=== PATIENT | female | born 1995 | race Caucasian/White ===

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

== ENCOUNTER 2017-01-18 18:05 | Emergency (ER) | payer BC ==
[2017-01-18 20:58] LABS: Hematocrit 36 % (35-47); Hemoglobin 12.2 g/dl (12.0-16.0); Mean Corpuscular HGB Conc 35 g/dl (31-36); Mean Corpuscular Hemoglobin 31 pg (27-31); Mean Corpuscular Volume 89 fL (80-97); Mean Platelet Volume 8 um3 (7.4-10.4); Red Blood Count 3.99 10^6/ul (4.0-5.4); Red Cell Distribution Width 12 % (10.5-15); White Blood Count 4.8 10^3/ul (3.5-10.8)
[2017-01-18 21:13] LABS: Albumin 4.2 g/dL (3.2-5.2); BUN/Creatinine Ratio 17.5 (8-20); Calcium 9.2 mg/dL (8.6-10.3); EGFR African American 156.6 (>60); EGFR Non-African American 121.7 (>60); Magnesium 2.4 mg/dL (1.9-2.7); Potassium 3.7 mmol/L (3.5-5.0); Total Bilirubin 0.3 mg/dL (0.2-1.0); Total Protein 7.2 g/dL (6.4-8.9)
[2017-01-18] MEDS ORDERED: NS 0.9% 1000 ML* 1,000 ML IV ONE (21:27)
[2017-01-18] MEDS ORDERED: Ketorolac INJ* 30 MG/ML 1 ML VIAL IV PUSH ONE (21:27)
[2017-01-18 21:54] LABS: Mono Internal Control QC Line Present
[2017-01-18 22:14] LABS: TSH (Thyroid Stimulating Horm) 1.07 mcIU/mL (0.34-5.60)
--- NOTE | 2017-01-18 22:50 | ED ---
HPI Febrile Illness - HPI Summary HPI Summary: Pt here w/ flu-like sx - upper resp congestion, mild cough, nausea and dizziness. Tried to go to [facility] but couldn't be seen today. Went to and was dx'd w/ virus however on her way out of the office, she lost her balance when she went from sitting to standing and so sent here. Cough is dry and intermittent - denies SOB, dyspnea. Admits to PND w/ ST. Fever. Denies neck pain/stiffness, rash, ab pain, urinary sx, and moving bowels well. Feels wiped out in general. No h/o cardiac issues. Dances at school. - History of Current Complaint Chief Complaint: EDGeneral Time Seen by Provider: 01/18/17 20:00 Hx Obtained From: Patient Pain Intensity: 0 - Allergy/Home Medications Allergies/Adverse Reactions: Allergies Allergy/AdvReac Type Severity Reaction Status Date / Time Shellfish Allergy Allergy Vomiting Verified 04/30/16 23:12 PMH/Surg Hx/FS Hx/Imm Hx Previously Healthy: Yes Endocrine/Hematology History: Denies: Hx Anticoagulant Therapy, Hx Blood Disorders, Hx Diabetes, Hx Thyroid Disease, Hx Anemia, Autoimmune Disease Cardiovascular History: Denies: Hx Congenital Heart Disease, Hx Deep Vein Thrombosis, Hx Hypertension , Hx Myocardial Infarction, Hx Syncope Respiratory History: Denies: Hx Asthma GI History: Denies: Hx Gastroesophageal Reflux Disease, Hx Gastrointestinal Bleed, Hx Ulcer History: Denies: Hx Renal Disease Psychiatric History: Reports: Hx Anxiety, Hx Depression Denies: Hx Eating Disorder, Hx of Violent Episodes Against Others - Immunization History Date of Tetanus Vaccine: utd Date of Influenza Vaccine: fall 2015 Infectious Disease History: No Infectious Disease History: Denies: Traveled Outside the [place] in Last 30 Days - Family History Known Family History: Negative: Cardiac Disease, Hypertension, Diabetes - Social History Occupation: Student Lives: Dormitory/Roommates Alcohol Use: None Hx Substance Use: No Substance Use Type: Reports: None Hx Tobacco Use: No Smoking Status (MU): Never Smoked Tobacco Review of Systems Positive: Fever, Fatigue. Negative: Chills Eyes: Negative Negative: Photophobia, Blurred Vision, Diplopia, Drainage, Erythema Positive: Sore Throat, Ear Ache, Nasal Discharge Cardiovascular: Negative Negative: Palpitations, Chest Pain Positive: Cough. Negative: Shortness Of Breath Positive: Nausea. Negative: Abdominal Pain, Vomiting, Diarrhea Negative: burning, dysuria, discharge, frequency, flank pain, hematuria, incontinence, pain, urgency Musculoskeletal: Negative Negative: Arthralgia, Myalgia, Decreased ROM, Edema Skin: Negative Negative: Rash Positive: Headache - low grade. Negative: Weakness, Paresthesia, Numbness, Syncope, Slurred Speech Psychological: Normal All Other Systems Reviewed And Are Negative: Yes Physical Exam Triage Information Reviewed: Yes Vital Signs On Initial Exam: Initial Vitals BP 111/69 01/18/17 18:12 Vital Signs Reviewed: Yes Appearance: Positive: Well-Appearing - appears mildly fatigued - otherwise good color, timely responses, No Pain Distress, Thin Skin: Positive: Warm, Dry Head/Face: Positive: Normal Head/Face Inspection - sinuses nttp Eyes: Positive: Normal, EOMI, JAYJAY, Conjunctiva Clear ENT: Positive: Normal ENT inspection, Hearing grossly normal, Pharynx normal, TMs normal. Negative: Nasal congestion, Nasal drainage, Tonsillar swelling, Tonsillar exudate Neck: Positive: Supple, Nontender, No Lymphadenopathy Respiratory/Lung Sounds: Positive: Clear to Auscultation, Breath Sounds Present. Negative: Rales, Rhonchi, Wheezes Cardiovascular: Positive: Normal, RRR, Pulses are Symmetrical in both Upper and Lower Extremities, S1, S2. Negative: Murmur, Rub, Leg Edema Left, Leg Edema Right Abdomen Description: Positive: Nontender, No Organomegaly, Soft. Negative: CVA Tenderness (R), CVA Tenderness (L) Bowel Sounds: Positive: Present Musculoskeletal: Positive: Normal, Strength/ROM Intact Neurological: Positive: Normal, Sensory/Motor Intact, Alert, Oriented to Person Place, Time, CN Intact II-III, Facial Symmetry, Speech Normal, Other - negative kernig and brudarianki Psychiatric: Positive: Normal - shy - Allen Coma Scale Coma Scale Total: 15 Diagnostics - Vital Signs Vital Signs Temp Pulse Resp BP Pulse Ox 01/18/17 21:46 80 104/72 01/18/17 18:17 100.3 F 81 16 111/69 99 01/18/17 18:13 80 98 01/18/17 18:12 111/69 - Laboratory Lab Results: Lab Results 01/18/17 01/18/17 01/18/17 Range/Units 20:44 20:49 20:49 WBC 4.8 (3.5-10.8) 10^3/ul RBC 3.99 L (4.0-5.4) 10^6/ul Hgb 12.2 (12.0-16.0) g/dl Hct 36 (35-47) % MCV 89 (80-97) fL MCH 31 (27-31) pg MCHC 35 (31-36) g/dl RDW 12 (10.5-15) % Plt Count 218 (150-450) 10^3/ul MPV 8 (7.4-10.4) um3 Neut % (Auto) 56.8 (38-83) % Lymph % (Auto) 34.3 (25-47) % Towner % (Auto) 5.2 (1-9) % Eos % (Auto) 3.1 (0-6) % Baso % (Auto) 0.6 (0-2) % Absolute Neuts (auto) 2.7 (1.5-7.7) 10^3/ul Absolute Lymphs (auto) 1.6 (1.0-4.8) 10^3/ul Absolute Monos (auto) 0.2 (0-0.8) 10^3/ul Absolute Eos (auto) 0.1 (0-0.6) 10^3/ul Absolute Basos (auto) 0 (0-0.2) 10^3/ul Absolute Nucleated RBC 0 10^3/ul Nucleated RBC % 0.1 Sodium 136 (133-145) mmol/L Potassium 3.7 (3.5-5.0) mmol/L Chloride 104 (101-111) mmol/L Carbon Dioxide 25 (22-32) mmol/L Anion Gap 7 (2-11) mmol/L BUN 11 (6-24) mg/dL Creatinine 0.63 (0.51-0.95) mg/dL Est GFR ( Amer) 156.6 (>60) Est GFR (Non-Af Amer) 121.7 (>60) BUN/Creatinine Ratio 17.5 (8-20) Glucose 88 (70-100) mg/dL Calcium 9.2 (8.6-10.3) mg/dL Magnesium 2.4 (1.9-2.7) mg/dL Total Bilirubin 0.30 (0.2-1.0) mg/dL AST 16 (13-39) U/L ALT 12 (7-52) U/L Alkaline Phosphatase 33 L (34-104) U/L Total Protein 7.2 (6.4-8.9) g/dL Albumin 4.2 (3.2-5.2) g/dL Globulin 3.0 (2-4) g/dL Albumin/Globulin Ratio 1.4 (1-3) TSH 1.07 (0.34-5.60) mcIU/mL Monoscreen Negative (Negative) Influenza A (Rapid) Negative (Negative) Influenza B (Rapid) Negative (Negative) Result Diagrams: 01/18/17 20:49 01/18/17 20:49 Lab Statement: Any lab studies that have been ordered have been reviewed, and results considered in the medical decision making process. Re-Evaluation - Re-Evaluation First Eval Change: Improved - fatigue and positional dizziness improved w/ IVF Course/Dx - Course Course Of Treatment: pt presents from [facility] w/ dx of URI (viral) w/ concern for becoming lightheaded with transition from sitting to standing. Evaluation here was neg for further emergenct concerns and pt's positional dizziness resovled w / IVF. She was tested for mono as her sx of ST and fatigue make her a candidate for this infection. She will rest and f/u w./ [facility] for final resuilts and release back to activity as appropriate. Reviewed danger s/sx of when to return to ED. Pt agrees w/ plan. - Diagnoses Provider Diagnoses: URI (upper respiratory infection) Discharge - Discharge Plan Condition: Stable Disposition: HOME Patient Education Materials: Mononucleosis (ED), Fever in Adults (ED), Upper Respiratory Infection (ED) Forms: *School Release Referrals: [facility] [Primary Care Provider] - Additional Instructions: The definitive cause of your symptoms was not identified today however you appear to have a viral infection with mild dehydration. This was most likely the cause of your dizziness earlier - your blood pressure was stable here tonight and you felt better after IV fluids and an anti-inflammatory medication. There is a possibility you could have mono. Additional labs were drawn here tonight. It is important that you rest for the next 48 hours and follow-up with [facility] for results and safe release back to classes, dance, etc. Call tomorrow to schedule an appointment. In the meantime, drink plenty of fluids. You may use acetaminophen alternating with ibuprofen for pain, fever You may try the following tactics for URI sx relief: Nasal wash (netti pot) & throat gargle 2 x day with 8 ounces of warm water + 1/ 4 teaspoon of salt Drink 60+ ounces of water daily Sleep 8+ hours per night Avoid Dairy and sugar Hot herbal/decaf tea with lemon & honey Chicken broth (preferably organic, free range chicken) Humidifier in house, but especially near bed at night Try a facial steam with or without eucalyptus essential oil Consider taking Vitamin D3 5,000iu and Vitamin C 1,000mg every day during illness *If symptoms worsen, return to ED
[2017-01-18 23:10] VITALS: BP 110/74
[2017-01-20 14:16] LABS: EBV Capsid Ag IgG Ab Negative (Negative); EBV Capsid Ag IgM Ab Negative (Negative)
== END 2017-01-18 23:12 | disposition home or self-care (01) ==
LOC: ED 18:05
DX: J39.8 Other specified diseases of upper respiratory tract (principal); J02.9 Acute pharyngitis, unspecified; R11.0 Nausea; R42 Dizziness and giddiness; R53.83 Other fatigue; H92.09 Otalgia, unspecified ear
CPT/HCPCS: 36415; 80053; 83735; 84443; 85025; 86308; 86664; 86665; 87502; 96374; 99284; J1885

== ENCOUNTER 2017-04-17 18:36 | Emergency (ER) | payer BC ==
--- NOTE | 2017-04-17 20:10 | ED ---
Influenza-Like Illness - History of Current Complaint Chief Complaint: EDFluSymptoms Time Seen by Provider: 04/17/17 19:22 - Allergy/Home Medications Allergies/Adverse Reactions: Allergies Allergy/AdvReac Type Severity Reaction Status Date / Time MS Shellfish Allergy Allergy Vomiting Verified 04/30/16 23:12 [Shellfish Allergy] PMH/Surg Hx/FS Hx/Imm Hx Endocrine/Hematology History: Denies: Hx Anticoagulant Therapy, Hx Blood Disorders, Hx Diabetes, Hx Thyroid Disease, Hx Anemia Cardiovascular History: Denies: Hx Congenital Heart Disease, Hx Congestive Heart Failure, Hx Deep Vein Thrombosis, Hx Hypertension, Hx Myocardial Infarction, Hx Syncope Respiratory History: Denies: Hx Asthma GI History: Denies: Hx Gastroesophageal Reflux Disease, Hx Gastrointestinal Bleed, Hx Ulcer History: Denies: Hx Renal Disease Psychiatric History: Reports: Hx Anxiety, Hx Depression Denies: Hx Eating Disorder, Hx of Violent Episodes Against Others - Immunization History Date of Tetanus Vaccine: utd Date of Influenza Vaccine: 12/2016 Immunizations Up to Date: Yes Infectious Disease History: No Infectious Disease History: Denies: Traveled Outside the [place] in Last 30 Days - Family History Known Family History: Negative: Cardiac Disease, Hypertension, Diabetes - Social History Alcohol Use: None Hx Substance Use: No Substance Use Type: Reports: None Hx Tobacco Use: No Smoking Status (MU): Never Smoked Tobacco Physical Exam Vital Signs On Initial Exam: Initial Vitals Temp Pulse Resp BP Pulse Ox 99.3 F 96 16 116/71 99 04/17/17 19:12 04/17/17 19:12 04/17/17 19:12 04/17/17 19:12 04/17/17 19:12 Diagnostics - Vital Signs Vital Signs Temp Pulse Resp BP Pulse Ox 04/17/17 19:12 99.3 F 96 16 116/71 99 - Laboratory Lab Statement: Any lab studies that have been ordered have been reviewed, and results considered in the medical decision making process. Discharge - Discharge Plan [facility] [facility] -
[2017-04-17] MEDS ORDERED: Ibuprofen TAB* 600 MG PO ONE (20:14)
[2017-04-17 21:32] VITALS: BP 127/68
--- NOTE | 2017-04-17 21:50 | ED ---
Influenza-Like Illness - HPI Summary HPI Summary: 21 female presents to ED with complaints of still feeling ill after being diagnosed with the flu 2 days ago. Patient states she is still coughing, experiencing palpitations, body aches and fatigue. Has had decreased appetite although has been trying to drink. Denies any other new symptoms. Has been taking nyquil and tylenol. Admits to intermittent nausea, denies vomiting, abdominal pain, and diarrhea. Denies neck pain or stiffness. No recent fever. No other complaints. No PMHx. No other medications. - History of Current Complaint Chief Complaint: EDFluSymptoms Time Seen by Provider: 04/17/17 19:22 Hx Obtained From: Patient Onset/Duration: Sudden Onset, Lasting Days, Still Present Severity: Moderate Associated Signs & Symptoms: Myalgia, Cough, Nasal Congestion - Allergy/Home Medications Allergies/Adverse Reactions: Allergies Allergy/AdvReac Type Severity Reaction Status Date / Time MS Shellfish Allergy Allergy Vomiting Verified 04/30/16 23:12 [Shellfish Allergy] PMH/Surg Hx/FS Hx/Imm Hx Endocrine/Hematology History: Denies: Hx Anticoagulant Therapy, Hx Blood Disorders, Hx Diabetes, Hx Thyroid Disease, Hx Anemia Cardiovascular History: Denies: Hx Congenital Heart Disease, Hx Congestive Heart Failure, Hx Deep Vein Thrombosis, Hx Hypertension, Hx Myocardial Infarction, Hx Syncope Respiratory History: Denies: Hx Asthma GI History: Denies: Hx Gastroesophageal Reflux Disease, Hx Gastrointestinal Bleed, Hx Ulcer History: Denies: Hx Renal Disease Psychiatric History: Reports: Hx Anxiety, Hx Depression Denies: Hx Eating Disorder, Hx of Violent Episodes Against Others - Surgical History Surgery Procedure, Year, and Place: n/a - Immunization History Date of Tetanus Vaccine: utd Date of Influenza Vaccine: 12/2016 Immunizations Up to Date: Yes Infectious Disease History: No Infectious Disease History: Denies: Traveled Outside the [place] in Last 30 Days - Family History Known Family History: Negative: Cardiac Disease, Hypertension, Diabetes - Social History Alcohol Use: None Hx Substance Use: No Substance Use Type: Reports: None Hx Tobacco Use: No Smoking Status (MU): Never Smoked Tobacco Review of Systems Positive: Chills, Fatigue Positive: Nasal Discharge Positive: Palpitations - sometimes associated with fever Positive: Cough Positive: Nausea Positive: Myalgia Positive: Headache All Other Systems Reviewed And Are Negative: Yes Physical Exam Triage Information Reviewed: Yes Vital Signs On Initial Exam: Initial Vitals Temp Pulse Resp BP Pulse Ox 99.3 F 96 16 116/71 99 04/17/17 19:12 04/17/17 19:12 04/17/17 19:12 04/17/17 19:12 04/17/17 19:12 Vital Signs Reviewed: Yes Appearance: Positive: Well-Appearing, No Pain Distress, Well-Nourished Skin: Positive: Warm, Skin Color Reflects Adequate Perfusion, Dry ENT: Positive: Hearing grossly normal, Pharyngeal erythema, Nasal congestion, TMs normal, Uvula midline Neck: Positive: Supple, Nontender, No Lymphadenopathy. Negative: Nuchal Rigidity Respiratory/Lung Sounds: Positive: Clear to Auscultation, Breath Sounds Present. Negative: Rales, Rhonchi, Wheezes Cardiovascular: Positive: Normal, RRR, Pulses are Symmetrical in both Upper and Lower Extremities. Negative: Murmur, Rub Abdomen Description: Positive: Nontender, Soft Bowel Sounds: Positive: Present Musculoskeletal: Positive: Normal, Strength/ROM Intact Neurological: Positive: Normal, Sensory/Motor Intact, Alert, Oriented to Person Place, Time Diagnostics - Vital Signs Vital Signs Temp Pulse Resp BP Pulse Ox 04/17/17 21:31 97.8 F 96 19 127/68 98 04/17/17 19:12 99.3 F 96 16 116/71 99 - Laboratory Lab Statement: Any lab studies that have been ordered have been reviewed, and results considered in the medical decision making process. Flu Symptom Course/Dx - Course Course Of Treatment: reassured patient that her symptoms are due to having influenza, which was tested positive on and that symptoms can last 1 week. due to symptoms being <48 hours no tamiflu initiated. no other concerns. normal PE and vital signs. follow up with health center. aware of worsening signs and symptoms to watch out for and to return if occur. understands and agrees. patient also probably due to dehydration and not eating/drinking appropriately due to illness. encourage fluids with electrolytes. rest. - Diagnoses Differential Diagnosis/HQI/PQRI: Positive: Influenza, Upper Respiratory Infection Provider Diagnoses: Influenza Discharge - Discharge Plan Condition: Stable Disposition: HOME Patient Education Materials: Influenza (ED) [facility]: [facility] [Primary Care Provider] - Additional Instructions: continue taking ibuprofen/tylenol for body aches and fever. cover mouth and wash hands frequently. increase fluid intake with gatorade or pedialyte to help with dehydration due to decreased appetite from illness. Any new or worsening symptoms please seek medical attention promptly. Follow up with health center in 2 days to ensure improvement. Symptoms may last up to 1 week
== END 2017-04-17 21:32 | disposition home or self-care (01) ==
LOC: ED 18:36
DX: J11.1 Influenza due to unidentified influenza virus with other respiratory manifestations (principal); R05 Cough; R53.83 Other fatigue; R00.2 Palpitations; R11.0 Nausea; R51 Headache
CPT/HCPCS: 99282; A9270-GY

== ENCOUNTER 2017-12-28 19:01 | Emergency (ER) | payer BC ==
[2017-12-28] MEDS ORDERED: NS 0.9% 1000 ML* 2,000 ML IV ONE (19:50)
[2017-12-28 20:32] LABS: ABS Basophils 0 10^3/ul (0-0.2); ABS Eosinophils 0 10^3/ul (0-0.6); ABS Lymphocytes 0.4 10^3/ul (1.0-4.8); ABS Monocytes 0.2 10^3/ul (0-0.8); ABS Neutrophils 3.8 10^3/ul (1.5-7.7); ABS Nucleated RBC 0 10^3/ul; Eosinophil % 0 % (0-6); Hematocrit 36 % (35-47); Hemoglobin 12.3 g/dl (12.0-16.0); Lymphocyte % 9.4 % (25-47); Mean Corpuscular HGB Conc 35 g/dl (31-36); Mean Corpuscular Hemoglobin 31 pg (27-31); Mean Corpuscular Volume 89 fL (80-97); Mean Platelet Volume 7.2 um3 (7.4-10.4); Nucleated Red Blood Cells % 0.1; Platelet Count 168 10^3/ul (150-450); Red Blood Count 3.99 10^6/ul (4.00-5.40); Red Cell Distribution Width 12 % (10.5-15); White Blood Count 4.5 10^3/ul (3.5-10.8)
[2017-12-28] MEDS ORDERED: Acetaminophen TAB* 325 MG PO ONE (20:32)
[2017-12-28] MEDS ORDERED: cefTRIAXone(*) 1 GM in NS 0.9% 50 ML* 50 ML IVPB ONE (20:34)
[2017-12-28] MEDS ORDERED: Azithromycin IV(*) 500 MG in NS 0.9% 250 ML* 250 ML IVPB ONE (20:34)
--- NOTE | 2017-12-28 20:40 | ED ---
HPI Febrile Illness - HPI Summary HPI Summary: The pt is a 22 y/o female presenting to [facility] c/o febrile illness since 2 days ago after returning to college from fall. She notes a sharp and achy REDDY, dizziness, lightheadedness, fever at 100.6 F, unproductive cough , sore throat, vomiting , chills, weakness, dyspnea but denies CP, abd pain and diarrhea. She got referred to the ED from [facility]. Her LNMP is 12/28/2017. - History of Current Complaint Chief Complaint: EDFluSymptoms Time Seen by Provider: 12/28/17 19:45 Hx Obtained From: Patient, Family/Reconcilement Clerk - Boyfriend Onset/Duration: Started Days Ago - 2 days, Still Present Timing: Constant Current Severity: Severe Pain Intensity: 8 Pain Scale Used: 0-10 Numeric Associated Signs and Symptoms: Chills, Cough, Dizziness, Headache, Weakness - Allergy/Home Medications Allergies/Adverse Reactions: Allergies Allergy/AdvReac Type Severity Reaction Status Date / Time shellfish derived Allergy Vomiting Verified 12/28/17 21:32 Home Medications: Home Medications Sertraline* [Zoloft*] 100 mg PO DAILY 12/28/17 [History Confirmed 12/28/17] PMH/Surg Hx/FS Hx/Imm Hx Previously Healthy: No Endocrine/Hematology History: Denies: Hx Anticoagulant Therapy, Hx Blood Disorders, Hx Diabetes, Hx Thyroid Disease, Hx Anemia Cardiovascular History: Denies: Hx Congenital Heart Disease, Hx Congestive Heart Failure, Hx Deep Vein Thrombosis, Hx Hypertension, Hx Myocardial Infarction, Hx Syncope Respiratory History: Denies: Hx Asthma GI History: Denies: Hx Gastroesophageal Reflux Disease, Hx Gastrointestinal Bleed, Hx Ulcer History: Denies: Hx Renal Disease Psychiatric History: Reports: Hx Anxiety, Hx Depression Denies: Hx Eating Disorder, Hx of Violent Episodes Against Others - Surgical History Surgery Procedure, Year, and Place: n/a - Immunization History Date of Tetanus Vaccine: utd Date of Influenza Vaccine: 12/2016 Infectious Disease History: No Infectious Disease History: Denies: Traveled Outside the [place] in Last 30 Days - Family History Known Family History: Negative: Cardiac Disease, Hypertension, Diabetes - Social History Occupation: Student Lives: Dormitory/Roommates Alcohol Use: None Hx Substance Use: No Substance Use Type: Reports: None Hx Tobacco Use: No Smoking Status (MU): Never Smoked Tobacco Review of Systems Constitutional: Other - Positive: Dizziness, lightheadedness Positive: Fever, Chills Positive: Sore Throat Negative: Chest Pain Respiratory: Negative - Dyspnea Positive: Cough Positive: Vomiting. Negative: Abdominal Pain, Diarrhea Positive: Headache, Weakness All Other Systems Reviewed And Are Negative: Yes Physical Exam - Summary Physical Exam Summary: Appearance: Well-appearing, Well-nourished, lying in bed comfortably Skin: Warm, dry, no obvious rash Eyes: sclera anicteric, no conjunctival pallor ENT: mucous membranes moist, pharynx appears normal Neck: Supple, nontender Respiratory: Clear to auscultation, no signs of respiratory distress Cardiovascular: Mild tachycardia noted . No murmurs. Normal distal pulses in tibial and radial bilaterally. Abdomen: Soft, nontender, normal active bowel sounds present Musculoskeletal: Normal, Strength/ROM Intact Neurological: A&Ox3, awake and alert, mentation is normal, speech is fluent and appropriate Psychiatric: affect is normal, does not appear anxious or depressed Triage Information Reviewed: Yes Vital Signs On Initial Exam: Initial Vitals Temp Pulse Resp BP Pulse Ox 102.9 F 116 18 119/71 97 12/28/17 19:07 12/28/17 19:07 12/28/17 19:07 12/28/17 19:07 12/28/17 19:07 Vital Signs Reviewed: Yes Diagnostics - Vital Signs Vital Signs Temp Pulse Resp BP Pulse Ox 12/28/17 19:07 102.9 F 116 18 119/71 97 - Laboratory Lab Results: Lab Results 12/28/17 Range/Units 20:18 WBC 4.5 (3.5-10.8) 10^3/ul RBC 3.99 L (4.00-5.40) 10^6/ul Hgb 12.3 (12.0-16.0) g/dl Hct 36 (35-47) % MCV 89 (80-97) fL MCH 31 (27-31) pg MCHC 35 (31-36) g/dl RDW 12 (10.5-15) % Plt Count 168 (150-450) 10^3/ul MPV 7.2 L (7.4-10.4) um3 Neut % (Auto) 85.0 H (38-83) % Lymph % (Auto) 9.4 L (25-47) % Wayne % (Auto) 5.4 (0-7) % Eos % (Auto) 0 (0-6) % Baso % (Auto) 0.2 (0-2) % Absolute Neuts (auto) 3.8 (1.5-7.7) 10^3/ul Absolute Lymphs (auto) 0.4 L (1.0-4.8) 10^3/ul Absolute Monos (auto) 0.2 (0-0.8) 10^3/ul Absolute Eos (auto) 0 (0-0.6) 10^3/ul Absolute Basos (auto) 0 (0-0.2) 10^3/ul Absolute Nucleated RBC 0 10^3/ul Nucleated RBC % 0.1 Result Diagrams: 12/28/17 20:18 12/28/17 20:18 Lab Statement: Any lab studies that have been ordered have been reviewed, and results considered in the medical decision making process. - Radiology CXR Radiology Interpretation Completed By: ED Physician - IMPRESSION: R medial Infiltrate. Official report pending. Course/Dx - Course Course Of Treatment: A 22 year-old F presents to the ED with a CC of febrile illness since 2 days ago after returning from fall. She notes sharp and achy REDDY, dizziness, lightheadedness, fever at 100.6 F, unproductive cough , sore throat, vomiting , chills, weakness, dyspnea but denies CP, abd pain and diarrhea. A physical exam revealed mild tachycardia but is otherwise normal. A CXR reveals right medial infiltrates. In the ED course, pt was given Acetaminophen 975 mg PO, N.s 0.9% 1000ml IV, Ceftrixone 1mg in 50ml N.s 0.9% IV , and Azithromycin 500mg in 250 ml N.s 0.9% IV which improved the symptoms. Patient will be discharged with a final Dx of PNA. Pt is agreeable with this plan. Allergies noted. - Diagnoses Provider Diagnoses: Pneumonia Discharge - Sign-Out/Discharge Documenting (check all that apply): Patient Departure - DC - Discharge Plan Condition: Stable Disposition: HOME Prescriptions: Azithromycin TAB* [Zithromax TAB (Z-DIONISIO) 250 mg #6 tabs] 250 mg PO DAILY #4 tab Patient Education Materials: Pneumonia (ED) Referrals: [facility] [Outside] - Billing Disposition and Condition Condition: STABLE Disposition: Home - Attestation Statements Document Initiated by Scribe: Yes Documenting Scribe: Magi Calabrese Provider For Whom Joseph is Documenting (Include Credential): Dr. Miles Padron MD Scribe Attestation: Magi Tao , scribed for Dr. Miles Padron MD on 12/30/17 at 1428. Scribe Documentation Reviewed: Yes Provider Attestation: The documentation as recorded by the [email or web address] accurately reflects the service I personally performed and the decisions made by me, Dr. Miles Padron MD
[2017-12-28 20:50] LABS: EGFR Non-African American 127.5 (>60)
[2017-12-28 22:25] VITALS: BP 107/65
--- NOTE | 2017-12-29 07:31 | RAD ---
INDICATION: Fever and cough. COMPARISON: Comparison is made with a prior study from December 03, 2016. TECHNIQUE: AP and lateral views of the chest were obtained. FINDINGS: The heart is within normal limits in size. There is a small infiltrate present at the right lung base which appears new most consistent with pneumonia. No pleural effusion is seen. IMPRESSION: NEW SMALL RIGHT BASILAR INFILTRATE MOST CONSISTENT WITH PNEUMONIA. R0
== END 2017-12-28 22:25 | disposition home or self-care (01) ==
LOC: ED 19:01
DX: J18.9 Pneumonia, unspecified organism (principal); R05 Cough; R42 Dizziness and giddiness; R51 Headache; R53.1 Weakness
CPT/HCPCS: 36415; 71046; 80053; 83605; 83735; 84702; 85025; 86140; 87040; 96365; 99283; A9270-GY; J0456; J0696